=== PATIENT | male | born 1950 | race Caucasian/White ===

== ENCOUNTER 2019-06-05 15:57 | Outpatient (CLI) | payer MEDICARE, SELFPAY ==
--- NOTE | ~2019-06-05 | MR_ITS ---
EXAMINATION: MR brain/brain stem wo/w con EXAM DATE: 06/05/2019 18:29 INDICATION: Stroke. Right facial paresthesia. TECHNIQUE: Magnetic resonance imaging (MRI) of the brain/brain stem obtained without contrast. [place] T1, axial diffusion, gradient echo (T2*), T1, T2, FLAIR sequences obtained. Patient was then inj ected with 14 cc intravenous Multihance contrast. Axial and coronal postcontrast T1 weighted sequence s obtained. There is no prior study for comparison. FINDINGS: There is a large right-sided subdural hematoma with high T1 and intermediate T2 signal, but heterogeneity, most likely acute on subacute subdural hematoma. This measures up to 2.5 cm in thickn ess, is causing 1 cm of contralateral midline shift and some collapse of the right lateral ventricle. Physician's office is closed at this time. I phoned patients number on record and left a message to call me back with my direct line at 06/05/2019 18:53 ENVIRONMENTAL [employer]OTECTION FORESTER. There are no areas of restricted diffusion to suggest acute infarction. Mild microangiopathy. No intr aparenchymal brain mass. Flow voids are seen in the cerebral arteries on the T2-weighted sequences c onsistent with their expected patency. The orbits are unremarkable. Soft tissue is unremarkable. IMPRESSION: Large right-sided subdural hematoma probably acute on subacute. Subfalcine herniation. Re commend emergent neurosurgical evaluation. I phoned Duarte Gonzalez Jr., MD answering service at 06/05/2019 18:59 ENVIRONMENTAL PROTECTION FORESTER with a message to return m y call regarding this patient. Reviewed, dictated and finalized at location A. RONMENTAL PROTECTION FORESTER IMPRESSION: Large right-sided subdural hematoma probably acute on subacute. Sub falcine herniation. Recommend emergent neurosurgical evaluation. I phoned Duarte Gonzalez Jr., MD answering service at 06/05/2019 18:59 ENVIRONMENTAL PROTECTION FORESTER with a message to return my call regarding this patient.
[2019-06-05 18:07] LABS: Estimated Glomerular Filt Rate > 60
== END 2019-06-05 15:58 | disposition home or self-care (01) ==
LOC: ANHIMG 15:59
PROVIDERS: PCP Internal Medicine; Visit Provider Internal Medicine
DX: I63.9 Cerebral infarction, unspecified (principal)
CPT/HCPCS: 36415; 70553; A9577

== ENCOUNTER 2019-12-13 09:54 | Outpatient (CLI) | payer MEDICARE, SELFPAY ==
--- NOTE | ~2019-12-13 | CT_ITS ---
EXAMINATION: CT brain wo con DATE: 12/13/2019 10:26 INDICATION: Subdural hematoma follow-up. Frontal headaches. Lightheadedness. TECHNIQUE: Computed tomography (CT) of the head was performed without intravenous contrast. The mA wa s adjusted according to patient size. Iterative reconstruction technique was employed. Exam dose: 68 1.00 mGy-cm total exam DLP. COMPARISON: 06/08/2018 CTA brain/carotid 06/05/2019 MRI brain/brainstem FINDINGS: There is a right high frontal adrain hole; subdural hematoma noted on 06/05/2019 MRI brain scan is no longer present. Cerebral atherosclerotic calcifications including bilateral carotid siphon internal carotid artery ca lcifications. There is nonspecific diminished attenuation of the cerebral white matter, likely due to chronic small vessel ischemic changes. Chronic lacunar infarct is again noted in the right subinsular white matter. No intracranial mass lesion or hemorrhage. No midline shift or mass effect. No subdural or epidural h ematoma. No fracture or bone destruction of the cranial vault. There is mild echograms thickening along the lower inner wall of the left maxillary sinus and nearly. The paranasal sinuses and mastoid air cells are otherwise unremarkable. IMPRESSION: Right sided adrian hole; resolution of subdural hematoma since 06/28/2018 Cerebral atherosclerosis and chronic small vessel ischemic changes of the cerebral white matter Stable small chronic right subinsular lacunar infarct Reviewed, dictated and finalized at [facility]. Reviewed, dictated and finalized at location A. IMPRESSION: Right sided adrian hole; resolution of subdural hematoma since 2018 Cerebral atherosclerosis and chronic small vessel ischemic changes of the cereb ral white matter Stable small chronic right subinsular lacunar infarct
== END 2019-12-13 09:55 | disposition home or self-care (01) ==
PROVIDERS: PCP Internal Medicine
DX: S06.5X9A Traumatic subdural hemorrhage with loss of consciousness of unspecified duration, initial encounter (principal); X58.XXXA Exposure to other specified factors, initial encounter
CPT/HCPCS: 70450

== ENCOUNTER 2020-04-17 10:23 | Outpatient (CLI) | payer MEDICARE, SELFPAY ==
--- NOTE | ~2020-04-17 | CT_ITS ---
EXAMINATION: CT brain wo con EXAM DATE: 04/17/2020 10:56 INDICATION: Subdural hematoma. Fall injury March 2019. TECHNIQUE: Spiral CT of the head was performed without contrast. Axial, coronal and sagittal images were reviewed. The dose-length product (DLP) for this examination was 605.33 mGy-cm. The exposure w as tailored according to patient size, and iterative reconstruction (ASIR) was used as additional dos e reduction technique. Comparison is made to prior examination from 12/13/2019. FINDINGS: There is a right frontal adrian hole. There is no acute intraparenchymal hemorrhage. No evid ence of intraparenchymal brain mass lesion. No evidence of acute infarction. Please note that initi al head CT has limited sensitivity for small or acute infarctions. There is mild periventricular and subcortical hypodensity, nonspecific but probably related to small vessel ischemic disease. There i s mild prominence of the sulci and ventricles related to cerebral atrophy. There is intracranial ca rotid arteriosclerosis. There are no extra-axial collections. There is no mass effect or midline sh ift. The orbits are unremarkable. Soft tissue is unremarkable. The visualized sinuses and mastoid air cells are well aerated. IMPRESSION: 1. No acute intracranial findings. 2. Chronic age related findings. Reviewed, dictated and finalized at location B. HEAD CRANE OPERATOR
== END 2020-04-17 10:24 | disposition home or self-care (01) ==
PROVIDERS: PCP Internal Medicine
DX: S06.5X9A Traumatic subdural hemorrhage with loss of consciousness of unspecified duration, initial encounter (principal)
CPT/HCPCS: 70450